=== PATIENT | female | born 1965 | race Caucasian/White ===

== ENCOUNTER 2019-11-02 05:31 | Inpatient (IN) | payer BC, SELFPAY ==
[2019-11-02] VITALS (40 sets, daily range): BP systolic 90–141; BP diastolic 44–78; PULSE 54–87; RESP 10–28; TEMP 36.8–37.3; O2SAT 90–100; BMI 23.5
--- NOTE | 2019-11-02 05:36 | W.ED.CHESTPA ---
HPI - Chest Pain General: Chief Complaint: Chest Pain Stated Complaint: chest pain Time Seen by Provider: 11/02/19 05:36 History of Present Illness: HPI narrative: 53-year-old lady with no prior history of coronary disease. She does have a history of smoking and hypertension. She went to bed yesterday evening with some chest discomfort she related to indigestion. Kept her awake on and off. This morning she got up with worsening chest discomfort, she had a near syncopal episode on her way to the bathroom. EMS was called. EKG done in the field showed elevations in 2 3 aVF. Associated symptoms: Reports dyspnea and nausea; Deny abdominal pain, fever(s), palpitations or vomiting Review of Systems Const: Denies: fever(s) or chills Eyes: Denies: change in vision ENMT: Denies: swelling of lips/tongue or sinus pain Card: Reports: chest pain; Denies: palpitations, irregular heart rhythm or edema Resp: Reports: dyspnea; Denies: productive cough, non-productive cough or wheezing GI: Reports: nausea; Denies: abdominal pain or vomiting : Denies: dysuria or hematuria Skin/Breast: Denies: rash or pruritus Neuro: Reports: dizziness; Denies: headache(s) or vertigo Psych: Denies: anxiety PFSH ED PFSH: Medical History (Updated 11/02/19 @ 06:15 by Rakesh Baldwin MD) Essential hypertension Tobacco abuse Surgical History (Updated 11/02/19 @ 06:15 by Rakesh Baldwin MD) H/O: hysterectomy Physical Exam Const: GENERAL APPEARANCE: well developed ORIENTATION/CONSCIOUSNESS: Yes oriented to person, Yes oriented to place and Yes oriented to time HENMT: COMMON NORMALS: normocephalic, external ears normal and Normal external nose present HEAD & SCALP: normocephalic FACE & SINUS: normal facial exam NOSE: Normal external nose present and No nasal discharge present EXTERNAL EAR: Yes external ears normal Eye: COMMON NORMALS: Equal, round and reactive pupils present, EOMs intact bilaterally and conjunctivae normal EYELID: eyelids normal CONJUNCTIVA: Yes conjunctivae normal PUPIL: Yes Equal, round and reactive pupils present Neck/C-Spine: GENERAL: No tracheal deviation Chest: COMMONS NORMALS: normal inspection of the chest CHEST: No tenderness Resp: COMMON NORMALS: clear to auscultation bilaterally EFFORT & INSPECTION: No tachypneic, No respiratory distress, No retractions, No uses accessory muscles and No tracheal deviation AUSCULTATION: clear to auscultation bilaterally, no rhonchi, no wheezes and lung sounds not diminished Cardio: COMMON NORMALS: regular rate and regular rhythm RATE: regular rate RHYTHM: regular rhythm HEART SOUNDS: no murmurs PERIPHERAL PULSES: radial pulses present GI: INSPECTION: No abdominal distension AUSCULTATION: No Hyperactive bowel sounds present and No Hypoactive bowel sounds present PALPATION: No Guarding due to palpation present (GI) and No Rigid due to palpation Neuro: SENSORIUM/ORIENTATION: Yes oriented to person, Yes oriented to place and Yes oriented to time Psych: COMMON NORMALS: mental status grossly normal Skin: COMMON NORMALS: no rashes or lesions noted GENERAL SKIN EXAM: no rashes or lesions noted Course Consultations: Consultation #1: yarelis Time: 05:36 Vital Signs: Vital signs: Vital Signs Temperature 98.2 F 11/02/19 05:31 Pulse Rate 72 11/02/19 06:14 Respiratory Rate 18 11/02/19 06:14 Blood Pressure 133/63 11/02/19 06:14 Pulse Oximetry 99 11/02/19 06:14 MDM - Chest Pain MDM Narrative: Medical decision making narrative: 53-year-old female with chest discomfort. EKG both in the field and on arrival here shows ST elevation in leads II, III, and aVF indicative of inferior DC. She has some reciprocal changes as well. Her blood pressure is 132/66. Rate is sinus in the 80s. Her oxygen saturations are 96% on room air. She is awake, and talking. She has little discomfort at this point. He received nitroglycerin in the field which improved her pain. Cardiology consulted as soon as her EKG was performed. STEMI alert was called. Cath team is on their way. Lab Data: Labs: Lab Results 11/02/19 11/02/19 Range/Units 04:42 05:35 WBC 18.5 H (4.0-10.0) 10^3/ uL RBC 4.54 (4.1-5.3) 10^6/u L Hgb 15.3 (11.5-15.3) g/dL Hct 47.5 H (37.0-47.0) % MCV 104.6 H (81-99) fL MCH 33.7 (28.0-34.0) pg MCHC 32.2 (30.0-36.0) g/dL RDW 12.8 (12.1-15.1) % Plt Count 198 (130-400) 10^3/c mm MPV 12.3 H (7.4-10.4) fL Neut % (Auto) 72.8 % Lymph % (Auto) 19.9 % [place] % (Auto) 5.7 % Eos % (Auto) 0.8 % Baso % (Auto) 0.4 % Neut # (Auto) 13.45 H (1.8-7.7) 10^3/u L Lymph # (Auto) 3.7 (0.8-4.8) 10^3/u L [place] # (Auto) 1.1 H (0.2-0.9) 10^3/u L Eos # (Auto) 0.2 (0.0-0.8) 10^3/u L Baso # (Auto) 0.1 (0.0-0.1) 10^3/u L Nucleated RBC % (a uto) 0 % Nucleated RBCs # 0.0 /100WBC PT 12.50 (10.5-13.3) SECO NDS INR 0.91 (0.8-1.2) APTT 28.5 (23.9-36.7) SECO NDS Discharge Plan Discharge Patient Disposition: Admitted As Inpatient Clinical Impression: ST elevation myocardial infarction (STEMI) Condition: Stable Coding Level of Care Code ED Mechanic Foreman for henry Fwd Exam Comprehensive
--- NOTE | 2019-11-02 05:38 | ECG_ITS ---
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 Measurements Intervals [place] Rate: 72 P: 62 [place]: 141 QRS: 74 QRSD: 91 T: 90 QT: 384 QTc: 422 Interpretive Statements SINUS RHYTHM WITH SINUS ARRHYTHMIA POSSIBLE LEFT ATRIAL ENLARGEMENT [-0.1mV P WAVE IN V1/V2] INCOMPLETE RIGHT BUNDLE BRANCH BLOCK [90+ ms QRS DURATION, TERMINAL R IN V1/V2, 40+ ms S IN I/aVL/V4/V5/V6] ST ELEVATION, CONSIDER INFERIOR INJURY [MARKED ST ELEVATION W/O NORMALLY INFLECTED T WAVE IN II/aVF] ACUTE VA INTERPRETATION BASED ON A DEFAULT AGE OF 40 YEARS No previous ECG available for comparison Electronically Signed On 11-02-2019 10:27:41 CDT by Rakesh Baldwin M.D. [id number]
--- NOTE | 2019-11-02 05:38 | XRR_ITS ---
PROCEDURE INFORMATION: Exam: XR Chest, 1 View Exam date and time: 11/02/2019 5:39 AM Age: 53 years old Clinical indication: Chest pain; Type not specified; Additional info: Cp TECHNIQUE: Imaging protocol: XR of the chest Views: 1 view. COMPARISON: No relevant prior studies available. FINDINGS: Tubes, catheters and devices: A transcutaneous pacemaker lead overlies the right hemithorax. Lungs: Unremarkable. No consolidation. Pleural space: Unremarkable. No pleural effusion. No pneumothorax. Heart/Mediastinum: Unremarkable. No cardiomegaly. Bones/joints: Unremarkable. XR/XR chest 1V portable [id number] IMPRESSION: There are no acute chest findings.
[2019-11-02] MEDS: heparin 5,000 unit/mL INJ 1 mL 4000 UNIT IVP (05:43)
--- NOTE | 2019-11-02 05:45 | PC.NURSE ---
Received patient to ER via ems with complaint of chest pain that woke her up at 0030. Patient had near syncope episode on the way to the bathroom. Patient wnet to the bathroom with diarrhea and passed out off stool. Patient called ou to her son who called ems. Patient arrives with 18g iv right ac per ems. in room. 2nd iv established right ac, ekg, placed on monitor/bp and pulse ox. Patient had nitro sl per ems and took a 325mg Asa at home. Meds given per order.
[2019-11-02] MEDS: sodium chloride 0.9% 500 ML 999 ML IV (05:49)
[2019-11-02] MEDS: clopidogrel 300 mg Tablet 600 MG PO (05:49)
[2019-11-02] MEDS: ondansetron 2 mg/ML SDV 2 mL 4 MG IVP (05:49)
[2019-11-02] MEDS: sodium chloride 0.9% 1,000 ML 999 ML IV (05:49)
--- NOTE | 2019-11-02 05:50 | XACV_ITS ---
Ht: 170 cm Wt: 68 kg BSA: 1.80 m2 Gender: Female : 1965 Exam Priority: Routine Procedure(s): Procedure Description: Diagnostic procedure Procedure Description: PCI procedure Procedure Description: Drug Eluting Coronary Stent Procedure Description: Coronary Angiography Diagnostic Cath Status: Emergency Diagnostic Findings Arrived at the emergency room with chest discomfort typical of injury. ST elevation inferiorly. Cardiac catheterization revealed the right coronary artery to be occluded proximally. The system is right dominant. The left main coronary artery is normal. The circumflex and LAD are normal. No left ventriculogram performed due to hypotension after intervention. PCI Status: Emergency Interventional Findings The right coronary artery was occluded proximally. The wire opened the artery slightly. The vessel was stented primarily. After this there was significant spasm both distal to and proximal to the stent which caused bradycardia and hypotension. The bradycardia was treated with 0.2 mg of atropine. The hypotension was treated with fluids. I was unable to use nitroglycerin to attempt relief of the spasm. Therefore I placed the balloon in the 2 areas proximal to and distal to the stent to break the spasm. Conclusions Acute inferior wall AL with occluded right coronary artery. Treated with primary stenting. Post stenting spasm relieved with balloon angioplasty. Interventional RX Recommendation: PCI w/o planned CABG Diagnostic RX Recommendation: PCI w/o planned CABG Anticoagulation: Heparin Pressures Phase:Rest AO : 56 mmHg / 14 mmHg ( 29 mmHg ) @ 1:39:00 AM 78 mmHg / 50 mmHg ( 63 mmHg ) @ 1:45:00 AM Clinical Evaluation EBL: 5mL-10mL Procedural Details Admit Source: Emergency department. Procedure Consent Obtained. Does the consent match the physician's order: Yes. Accurate & Complete Informed Consent: Yes. The risks, benefits, and alternatives of sedation and/or procedure were discussed by physician. The patient agrees to continue. If H&P is completed, is and addenduem needed: N/A Emergent; If yes, is the addendum complete: N/A Emergent. Procedure started. Current diagnosis: STEMI. PERRLA. Strong, equal hand body recall instructor bilaterally. Lungs clear x 5 lobes. IV Site on Arrival: 18 gauge in the left anticubital. IV Site on Arrival: 20 gauge in the right anticubital. IV Site on Arrival: Saline Lock. Oxygen started at 2liters/min via nasal canula. right radial was prepped with chloroprep then draped in the usual sterile fashion. bilateral groins was prepped with chloroprep then draped in the usual sterile fashion. Physician notified. Baseline sample Acquired. HR: 82 BPM. Physician arrived. Physician scrubbed in. Correct Patient: Yes; Correct Procedure: Yes; Correct Site: Yes; Correct Patient Position: Yes; Correct Supplies: Yes; Dried Flammable Prep: Yes; Blood Products Available: N/A Emergent;. Lidocaine 1% infiltrated to the right radial. Arterial access obtained. Inventory is CRD 6FR JR 4 GUIDE 100cm. guide inserted 6Fr JR4. Multiple views taken of left coronary artery. Catheter redirected to the RCA. Inflation Number : 1 Otilia Hatfiedl TATIANNA 2.75X18 RICHY -Lot Number# [id number] expiration date: 07/17/2020was prepped and advanced across the Prox RCA. The stent was deployed at 5 AMEYA for 0:50 seconds. 100mL/hr normal saline. Inflation number: 2 The stent balloon was then re-inflated across the Prox RCA to 3 AMEYA for 0:16 seconds. Inflation number: 3 The stent balloon was then re-inflated across the Prox RCA to 5 AMEYA for 0:15 seconds. Inflation number: 2 The stent balloon was then re-inflated across the Prox RCA to 5 AMEYA for 0:10 seconds. balloon and wire removed. Physician scrubbed out. Guide catheter out. TR band placed. Hemostasis obtained. A TR Band was successful obtaining hemostatsis at the Right Radial artery insertion site. Post Procedure: Pulses reassessed and unchanged. PERRLA. Strong, equal hand body recall instructor bilaterally. No VTE prophylaxis required. Contrast type used: Omnipaque 300 mgI/mL, 500 mL bottle. [facility] Clinical Fraility Score: 4: Vulnerable. Missile Inspector Preflight Indications: ACS > 24 hours. Chest Pain Symptom Assessment: Typical Angina Symptoms. Cardiovascular Instability: No. Medication's Wasted: Lidocaine 1% = 18 mL. Medication's Wasted: Nitro = 49.8 mg. Medication's Wasted: Heparin = 1000 units. Medication's Wasted: Other = Atropine 0.8mg. Medication's Wasted: Other = Versed 1mg. Total IV fluids: 100 mL. PCI Indication: STEMI. Complications: None. Estimated blood loss: 5mL-10mL. Procedure completed. Patient transferred by wheelchair to 1st floor. Vital chart was stopped. Site: Right Radial artery Sheath Size: 6 Fr Hemostasis Method: TR Band Hemostasis Success: Successful Procedure Medications Start: 6:25 AM Stop: 6:25 AM Medication: Versed Amount: 1 mg Route: I.V. Start: 6:25 AM Stop: 6:25 AM Medication: Fentanyl Amount: 50 mcg Route: I.V. Start: 6:25 AM Stop: 6:25 AM Medication: Versed Amount: 1 mg Route: I.V. Start: 6:25 AM Stop: 6:25 AM Medication: Fentanyl Amount: 50 mcg Route: I.V. Start: 6:28 AM Stop: 6:28 AM Medication: Verapamil Amount: 5 mg Route: I.A. Start: 6:28 AM Stop: 6:28 AM Medication: Nitrogylcerin Amount: 200 mcg Route: I.A. Start: 6:39 AM Stop: 6:39 AM Medication: Versed Amount: 1 mg Route: I.V. Start: 6:40 AM Stop: 6:40 AM Medication: Atropine Amount: 0.2 mg Route: I.V. I, the attending physician, have reviewed and verified all procedure medications. Yes, all medications given per verbal order History/Risk Factors Hypertension: No Dyslipidemia: No Peripheral Arterial Disease (PAD): No Myocardial Infarction (AL): No Obesity: No Renal Disease: No Tobacco Use: Current/Recent(w/in 1 year) Prior Interventions PCI: No CABG: No Valve Surgery: No Report Signatures Finalized by:Dr. Rakesh Baldwin MD on 11/02/2019 7:21:24 AM
[2019-11-02 05:58] LABS: Basophils # 0.1 10^3/uL (0.0-0.1); Basophils % 0.4 %; Eosinophils # 0.2 10^3/uL (0.0-0.8); Eosinophils % 0.8 %; Hematocrit 47.5 % (37.0-47.0); Hemoglobin 15.3 g/dL (11.5-15.3); Lymphocytes # 3.7 10^3/uL (0.8-4.8); Lymphocytes % 19.9 %; Mean Corpuscular HGB Conc 32.2 g/dL (30.0-36.0); Mean Corpuscular Hemoglobin 33.7 pg (28.0-34.0); Mean Corpuscular Volume 104.6 fL (81-99); Mean Platelet Volume 12.3 fL (7.4-10.4); Monocytes # 1.1 10^3/uL (0.2-0.9); Monocytes % 5.7 %; Neutrophils # 13.45 10^3/uL (1.8-7.7); Neutrophils % 72.8 %; Nucleated Red Blood Cells % 0 %; Platelet Count 198 10^3/cmm (130-400); Red Blood Count 4.54 10^6/uL (4.1-5.3); Red Cell Distribution Width 12.8 % (12.1-15.1); White Blood Count 18.5 10^3/uL (4.0-10.0)
--- NOTE | 2019-11-02 06:07 | PC.NURSE ---
Cath team Dr. veronica kincaid, patient pain 10/01.
--- NOTE | 2019-11-02 06:12 | P.HP_ITS ---
Providers/Chief Complaint Admitting Physician: Denny Chief Complaint: chest pain History of Present Illness Yaneth Wise is a 53 year old female who comes in under a STEMI alert. She has no history of heart disease. Last night she and her son ate spicy tacos. Around midnight she developed some upper abdominal and lower chest discomfort which she attributed to indigestion. Her stomach was upset and she knew she was going to have diarrhea. She got up and on the way to the bathroom passed out and did a face plant . She got up and then went to the bathroom and had diarrhea. After that she had another episode of syncope while sitting on the toilet. She then managed to get a hold of her son who was in a different room. She took an aspirin and then came to the emergency room. She has ST segment elevation in the inferior leads. She has been given 4000 units of heparin and 600 mg of Plavix. She has been given 4 mg of Zofran. She still has discomfort 6 on a 10 scale. She has hypertension but quit taking her medications in February when she moved to this area from [place]. She is a lifelong smoker but does not have any other medical problems. She had a hysterectomy. Review of Systems General: Reports: 10 or more systems reviewed and unremarkable except in HPI and below Medications/Allergies Allergies Allergy/AdvReac Type Severity Reaction Status Date / Time No Known Allergies Allergy Verified 11/02/19 05:31 PFSH Acute PFSH: Medical History (Updated 11/02/19 @ 06:15 by Rakesh Baldwin MD) Essential hypertension Tobacco abuse Surgical History (Updated 11/02/19 @ 06:15 by Rakesh Baldwin MD) H/O: hysterectomy Vitals/I&O/Wt Last Vital Signs Temp 98.2 F 11/02/19 05:31 Pulse 72 11/02/19 06:00 Resp 16 11/02/19 06:00 BP 133/61 11/02/19 06:08 Pulse Ox 99 11/02/19 06:08 Weight last 48 hrs Weight 150 lb Physical Exam Const: COMMON NORMALS: no acute distress, average body habitus, patient oriented x3, no limitations, healthy appearing, alert and well nourished HENMT: COMMON NORMALS: normocephalic, atraumatic, hearing grossly normal bilaterally, external ears normal, EAC's normal, TM's normal bilaterally, Normal external nose present, Normal nasal mucous membranes and turbinates present, moist oral mucous membranes, oropharynx normal, dentition normal and gingiva normal Chest: COMMONS NORMALS: normal inspection of the chest, normal palpation of entire chest wall, normal inspection of the breasts and normal palpation of the breasts Resp: COMMON NORMALS: normal respiratory effort, No retractions, No use of accessory muscles, clear to auscultation bilaterally and percussion normal Cardio: COMMON NORMALS: no JVD, regular rate, regular rhythm, S1 normal heart sound present, S2 normal heart sound present, No gallops present (Cardio), No clicks present (Cardio), No murmurs present (Cardio), No rub (Cardio) and Peripheral pulses 2+ throughout GI: COMMON NORMALS: Normal to inspection, nondistended, normoactive bowel sounds present, Soft to palpation, non-tender, No hepatosplenomegaly present, no masses and no bruits Extremity: COMMON NORMALS: normal to inspection, full ROM, capillary refill normal, no joint enlargement, no clubbing, cyanosis or edema, no calf tenderness and no pedal edema Neuro: COMMON NORMALS: patient oriented x3, CN's II-XII intact bilaterally, moves all extremities, no focal motor deficits, no sensory deficits noted, deep tendon reflexes 2+ bilaterally and gait normal Skin: COMMON NORMALS: no rashes or lesions noted, no wounds, turgor normal, no jaundice, no petechiae and no mottling Data : 11/02/19 04:42 Other data: Chest x-ray is normal. EKG reveals sinus rhythm with ST elevation in the inferior leads with some reciprocal changes. A&P Assessment and plan (1) ST elevation myocardial infarction (STEMI): Status: Acute (2) Essential hypertension: Status: Acute (3) Tobacco abuse: Status: Acute Additional A&P Information Cardiac catheterization immediately. Attestations Medical Necessity Statement*: Patient should require hospitalization for 2 mid nights for treatment of an acute inferior wall HI. Coding Level of Care Code New Pt Acute Lithoplate Maker for Chg Fwd Patient Type New History Detailed Exam Detailed Medical Decision Making Moderate Complexity Diagnoses ST elevation myocardial infarction (STEMI) I21.3 Essential hypertension I10 Tobacco abuse Z72.0
[2019-11-02 06:19] LABS: INR 0.91 (0.8-1.2)
[2019-11-02 06:20] LABS: Partial Thromboplastin Time 28.5 SECONDS (23.9-36.7)
--- NOTE | 2019-11-02 06:20 | PC.NURSE ---
Patient to laborer brush clearing in stable condition.
[2019-11-02 06:29] LABS: Alanine Aminotransferase 10 U/L (0-33); Albumin Level 4.9 g/dL (3.5-5.2); Alkaline Phosphatase 93 IU/L (35-105); Anion Gap 18.2 (5-19); Aspartate Amino Transferase 14 U/L (0-32); Blood Urea Nitrogen 18 mg/dL (6-20); Calcium 10.2 mg/dL (8.5-10.5); Carbon Dioxide 24 mmol/L (22-29); Chloride 105 mmol/L (98-107); Creatine Phosphokinase 88 U/L (26-192); Globulin 1.8 g/dL (1.3-4.6); Glomerular Filtration Rate 65.5 mL/min (90-130); Glucose 138 mg/dL (65-115); Osmolality Calculated 295 mOsm/kg (285-295); Potassium 4.2 mmol/L (3.5-5.1); Sodium 143 mmol/L (136-145); Total Bilirubin 0.2 mg/dL (0.15-1.2); Total Protein 6.7 g/dL (6.6-8.7)
[2019-11-02 06:32] LABS: Troponin(5th) Baseline 45 ng/L (0-10)
--- NOTE | 2019-11-02 07:38 | ECG_ITS ---
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 Measurements Intervals [place] Rate: 67 P: 48 RI: 142 QRS: 34 QRSD: 94 T: -1 QT: 438 QTc: 465 Interpretive Statements SINUS RHYTHM POSSIBLE RIGHT VENTRICULAR CONDUCTION DELAY [RSR (QR) IN V1/V2] No previous ECG available for comparison Electronically Signed On 11-02-2019 10:30:05 CDT by Rakesh Baldwin M.D. [id number]
--- NOTE | 2019-11-02 08:21 | USCV_ITS ---
Todjudi Bette Age: 53 Gender: F : 1965 Exam Date: 11/02/2019 08:43 Ordering Phys: Rakesh Baldwin MD ([email or web address]) Technologist: Mary Alice Ling [place] [facility] [place]: Acute inferior wall MS BP: 133 / 63 HR: 63 Rhythm: Sinus Technical Quality: Adequate MEASUREMENTS (Male / Female) Normal Values 2D ECHO LV Diastolic Diameter PLAX 4.0 cm 4.2 - 5.9 / 3.9 - 5.3 cm LV Systolic Diameter PLAX 2.5 cm LV Chamber Size 3.9 cm IVS Diastolic Thickness 1.6 cm 0.6 - 1.0 / 0.6 - 0.9 cm IVS Systolic Thickness 1.7 cm LVPW Diastolic Thickness 0.9 cm 0.6 - 1.0 / 0.6 - 0.9 cm LVPW Systolic Thickness 0.9 cm RV Chamber Size 2.2 cm LVOT Diameter 2.0 cm LV Ejection Fraction 2D Teich 66.0 % LV Ejection Fraction MOD 2C 62.0 % LV Ejection Fraction 2C AL 63.8 % LA Diameter 2.6 cm LA Width 2.4 cm LA Height 4.6 cm RA Width 2.2 cm RA Height 3.7 cm Aorta at Sinotubular Diameter 2.4 cm M-MODE LV Diastolic Diameter MM 4.3 cm 4.2 - 5.9 / 3.9 - 5.3 cm LV Systolic Diameter MM 3.0 cm LV Ejection Fraction MM Teich 57.0 % IVS Diastolic Thickness MM 1.1 cm 0.6 - 1.0 / 0.6 - 0.9 cm IVS Systolic Thickness MM 1.3 cm LVPW Diastolic Thickness MM 1.1 cm 0.6 - 1.0 / 0.6 - 0.9 cm LVPW Systolic Thickness MM 1.2 cm RV Diastolic Diameter MM 0.8 cm Aortic Annulus Diameter 2.7 cm LA Ao Ratio MM 1.0 MV E Point Septal Separation 0.4 cm DOPPLER AV Peak Velocity 149.0 cm/s LVOT Peak Velocity 102.0 cm/s AV Area Cont Eq vti 2.5 cm squared AV Area Cont Eq pk 2.0 cm squared MV Area PHT 4.3 cm squared Mitral E to A Ratio 1.0 MV E' Velocity 11.0 cm/s Mitral E to MV E' Ratio 6.9 Mitral E to LV E' Lateral Ratio 6.3 Mitral E to LV E' Septal Ratio 7.7 TR Peak Velocity 230.0 cm/s TR Peak Gradient 21.1 mmHg TV Peak E Velocity 39.0 cm/s Right Atrial Pressure 8.0 mmHg Pulmonary Artery Systolic Pressu 29.2 mmHg PV Peak Velocity 60.0 cm/s RV Acceleration Time 0.1 s RV Ejection Time 0.3 s RV AcT/ET 0.5 FINDINGS Left Ventricle Normal left ventricular cavity size. Normal left ventricular wall thickness. Mildly decreased left ventricular systolic function. Regional wall motion abnormalities (see diagram). Left ventricular ejection fraction is estimated at 45-50%. Normal diastolic function. Mild to moderate hypokinesis of the inferior and posterior montez Right Ventricle Normal right ventricular size and systolic function. Normal right ventricular systolic pressure. Right Atrium The right atrium is normal in size. Left Atrium The left atrium is normal in size. Mitral Valve Structurally normal mitral valve. Trace mitral valve regurgitation. Aortic Valve Structurally normal trileaflet aortic valve. No aortic valve stenosis. Mild aortic valve regurgitation. Tricuspid Valve Structurally normal tricuspid valve. Trace tricuspid valve regurgitation. Pulmonic Valve Pulmonic valve not well visualized. Pericardium Normal pericardium without effusion. Aorta Normal ascending aorta dimension. CONCLUSIONS Normal left ventricular cavity size. Normal left ventricular wall thickness. Mildly decreased left ventricular systolic function. Regional wall motion abnormalities (see diagram). Left ventricular ejection fraction is estimated at 45-50%. Normal diastolic function. Mild to moderate hypokinesis of the inferior and posterior montez. Structurally normal mitral valve. Trace mitral valve regurgitation. Structurally normal trileaflet aortic valve. No aortic valve stenosis. Mild aortic valve regurgitation. There are no prior echocardiogram studies to compare. Dr. Rakesh Baldwin MD (Electronically Signed) Final Date: 02 November 2019 10:25 S
[2019-11-02 08:48] LABS: Troponin 5 2HR 1173 ng/L (0-10); Troponin 5 2HR Delta 1128 ABS# (0-10)
[2019-11-02] MEDS: sodium chloride 0.9% 1,000 ML 150 ML IV (10:26)
[2019-11-02] MEDS: aspirin 81 mg EC Tablet PO ×2 (10:27→10:30)
--- NOTE | 2019-11-02 10:56 | PC.NURSE ---
pt admitted to room 103 from rags laborer at 0715.report received.pt is alert and awake.sr on monitor.denies pain at present .right wrist with tr band on and inflated.right hand is warm to touch and with brisk capillary refill.no hematoma noted.palpable radial pulse noted distal to tr band. instructed in activity restrictions s/p radial artery procedure..and instructed to notify staff of any bleeding,pain,numbness...or for any concerns at all.pt verb understanding of instructions.
--- NOTE | 2019-11-02 11:05 | PC.NURSE ---
dysrhythmias noted on monitor s/p inferior mi and stent to prox rca...episodes of mf pvc's...short run of svt. dr hussein notified.no new orders received.
[2019-11-02] MEDS: ALPRAZolam 0.25 mg Tablet PO ×2 (11:16→20:58)
--- NOTE | 2019-11-02 11:38 | ECG_ITS ---
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 Measurements Intervals [place] Rate: 63 P: 29 CT: 142 QRS: 16 QRSD: 91 T: -16 QT: 413 QTc: 424 Interpretive Statements SINUS RHYTHM POSSIBLE RIGHT VENTRICULAR CONDUCTION DELAY [RSR (QR) IN V1/V2] POSSIBLE INFERIOR MYOCARDIAL INFARCTION [30 ms Q WAVE IN II/aVF], OF INDETERMINATE AGE WARNING: DATA QUALITY MAY AFFECT INTERPRETATION Compared to ECG 11/02/2019 07:52:41 Myocardial infarct finding now present Electronically Signed On 11-03-2019 8:05:33 CDT by Rakesh Baldwin M.D. [id number]
--- NOTE | 2019-11-02 13:52 | PC.CHAP ---
Pastoral Care Encounter/Spiritual Assessment Type of Contact [] Declined precision devices inspector/tester visit [] Patient/Family/Request visit [] Outpatient visit [] Follow-up visit [] Physician referral [] Code/Alert [X] Routine visit [] Staff referral [] Actively dying [] Patient sleeping [] Family support [] [] Out of room [] Palliative care [] [] Receiving care in room [] Pre-surgical visit [] Trauma [] Long length of stay [] ICU visit [] Other: Relational/Emotional Strength [] Patient feels connected with others/family/visitors/staff [] Distress [] Loneliness/isolation [] Abandonment Spirituality of Patient [] Person of Avril [] Attends Islam of their Avril [] Believes in Prayer [] Reads Bible or Mu-Ism materials [] There are Spiritual issues to be addressed Electronic Gluer Interventions [] Prayer [] Active listening [] Non-anxious presence [] Spiritual/emotional support [] Crisis/trauma care [] Spiritual counseling [] Bereavement support [] Provided bereavement packet [] Provided Bible/devotional materials [] Provided toy/stuffed animal, coloring book to patient or family member [] Provided Communion [] Anointing/Rattan [] Salvation [] Completed spiritual assessment [] Other: Impact on Illness or Injury [] Angry [] Fearful [] Anxious [] Often cries [] Exhaustion [] Unable to work [] Unable to attend amish [] Unable to walk/stand [] Unable to read [] Unable to drive [] Unable to eat/drink [] Unable to sleep [] Unable to be with family [] Patient intubated [] Other: Summary Time spent with patient
[2019-11-02 14:17] LABS: Troponin 5 6HR 4709 ng/L (0-10); Troponin 5 6HR Delta 4664 ng/L (0-12)
--- NOTE | 2019-11-02 19:32 | PC.NURSE ---
tr band removal: tr band slowly deflated over several hours.finally removed at 1330.site dressed with 2x2 guaze and secured with biocclusive drsg.right hand remains warm to touch and with brisk capillary refill.no hematoma noted.instructed in activity restrictions s/p tr band removal...and instructed to notify staff for any bleeding,pain,numbness..or for any concerns at all.pt verb understanding of instructions.
--- NOTE | 2019-11-02 20:39 | PC.NURSE ---
Rounding: Patient is resting in bed. Patient R wrist dressing is clean dry and intact at this time and free of a hematoma. Patient remains alert and oriented. Patient denies any needs or complaints at this time. Patient call light is within reach, bed in low position, and side rails up x2.
[2019-11-02] MEDS: atorvastatin 40 mg Tablet PO (20:58)
[2019-11-03 03:32] VITALS: BP 134/50; PULSE 70; RESP 18; TEMP 37.1; O2SAT 92
[2019-11-03 03:41] LABS: Basophils % 0.4 %; Eosinophils # 0.1 10^3/uL (0.0-0.8); Eosinophils % 0.7 %; Hematocrit 41.2 % (37.0-47.0); Hemoglobin 12.8 g/dL (11.5-15.3); Lymphocytes # 3.3 10^3/uL (0.8-4.8); Lymphocytes % 33.6 %; Mean Corpuscular HGB Conc 31.1 g/dL (30.0-36.0); Mean Corpuscular Hemoglobin 32.4 pg (28.0-34.0); Mean Corpuscular Volume 104.3 fL (81-99); Mean Platelet Volume 11.8 fL (7.4-10.4); Monocytes # 0.7 10^3/uL (0.2-0.9); Monocytes % 7.4 %; Neutrophils # 5.64 10^3/uL (1.8-7.7); Neutrophils % 57.7 %; Nucleated Red Blood Cells % 0 %; Platelet Count 176 10^3/cmm (130-400); Red Blood Count 3.95 10^6/uL (4.1-5.3); Red Cell Distribution Width 13.1 % (12.1-15.1); White Blood Count 9.8 10^3/uL (4.0-10.0)
[2019-11-03 04:03] LABS: Anion Gap 12.6 (5-19); Blood Urea Nitrogen 12 mg/dL (6-20); Calcium 8.8 mg/dL (8.5-10.5); Carbon Dioxide 24 mmol/L (22-29); Chloride 109 mmol/L (98-107); Glomerular Filtration Rate 87.5 mL/min (90-130); Glucose 121 mg/dL (65-115); Osmolality Calculated 289 mOsm/kg (285-295); Potassium 4.6 mmol/L (3.5-5.1); Sodium 141 mmol/L (136-145)
--- NOTE | 2019-11-03 05:54 | PC.NURSE ---
End of shift: Patient has rested well this shift. Patient remains alert and oriented. R wrist does not have a hematoma. dressing is clean dry and intact. Patient denies any complaints at this time and will continue to monitor. Call light is within reach.
[2019-11-03 07:05] VITALS: BP 141/62; PULSE 70; RESP 19; TEMP 36.9; O2SAT 93
--- NOTE | 2019-11-03 07:16 | P.DS_ITS ---
Discharge Providers Date of Admission: 11/02/19 07:18 Date of Discharge: November 03, 2019 Attending Provider at Admission: Rakseh Baldwin MD Attending Provider at Discharge: Rakesh Baldwin MD Primary Care Provider: DOCTOR NOT ON FILE Diagnoses at Discharge Discharge Diagnosis (1) ST elevation myocardial infarction (STEMI): Status: Acute (2) Essential hypertension: Status: Acute (3) Tobacco abuse: Status: Acute Reason for Visit Reason for Visit: chest pain Hospital Course Hospital Course: Patient was admitted with an acute inferior wall MT. She was taken immediately to the catheterization laboratory. Her right coronary artery was occluded shortly after its origin. She underwent primary stenting. This caused a significant amount of spasm proximal to the stent all the way to the ostium and for short distance distal to the stent. She became hypotensive and bradycardic in the catheterization laboratory. I was unable to use nitroglycerin so I simply took the stent balloon and inflated it in the areas of spasm to break the spasm. This was successful. The end result was adequate. Her left coronary arteries are normal. I did not perform a left ventriculogram. Echocardiography revealed only mild hypokinesis of the inferior and posterior wall. She had some accelerated idioventricular rhythm for the 24 hours after the procedure. Her heart rate was relatively low throughout the day however at the time of discharge is in the 70s. Her blood pressure has been stable. She stated that she was placed on metoprolol in the past and did not like the way it made her feel. I will send her home on carvedilol. She will also go home on aspirin, Plavix, statin. She states she has had muscle aches from a statin in the past. I asked her to give it a try again. She has been asked to stop smoking. The procedure was done from the right radial artery. There were no vascular complications. At the time of discharge her right radial artery was flat, dry without bleeding or hematoma. She has a good pulse. There were no other complications such as congestive heart failure or other arrhythmias. Physical Exam Narrative: EXAM NARRATIVE: GENERAL: In general she looks and feels well HEENT: Exam within normal limits. NECK: Supple without jugular vein distention. The carotid upstroke is normal without bruits. BACK: Exam normal. LUNGS: Clear. HEART: Regular rate and rhythm. ABDOMEN: Benign without organomegaly or tenderness. EXTREMITIES: No edema. Right radial artery entry site flat, dry without bleeding or hematoma. Pulse 2+. NEUROLOGIC: Exam normal. SKIN: Unremarkable. Discharge Data Data Completed and Pending: Completed Studies During Hospitalization Category Date Time Status RETURNS PROCESSOR request for service Stat Exams 11/02/19 05:50 Completed XR chest 1V ethel ble [id number] Urgent Exams 11/02/19 05:38 Completed CV echo complete* [id number] Routine Ultrasound 11/02/19 08:21 Completed Labs from last 24 hours 11/03/19 11/03/19 11/02/19 03:01 03:01 13:21 WBC 9.8 RBC 3.95 L Hgb 12.8 Hct 41.2 MCV 104.3 H MCH 32.4 MCHC 31.1 RDW 13.1 Plt Count 176 MPV 11.8 H Neut % (Auto) 57.7 Lymph % (Auto) 33.6 [place] % (Auto) 7.4 Eos % (Auto) 0.7 Baso % (Auto) 0.4 Neut # (Auto) 5.64 Lymph # (Auto) 3.3 [place] # (Auto) 0.7 Eos # (Auto) 0.1 Baso # (Auto) 0.0 Nucleated RBC % (a uto) 0 Nucleated RBCs # 0.0 Sodium 141 Potassium 4.6 Chloride 109 H Carbon Dioxide 24 Anion Gap 12.6 BUN 12 Creatinine 0.7 GFR Calculation 87.5 L Glucose 121 H Calculated Osmolal ity 289 Calcium 8.8 Troponin T 120 Min [place] Delta Troponin T Troponin T Hi Sens 6Hr 4709 H Troponin T Hi Sens 6Hr Delta 4664 H* 11/02/19 08:07 WBC RBC Hgb Hct MCV MCH MCHC RDW Plt Count MPV Neut % (Auto) Lymph % (Auto) [place] % (Auto) Eos % (Auto) Baso % (Auto) Neut # (Auto) Lymph # (Auto) [place] # (Auto) Eos # (Auto) Baso # (Auto) Nucleated RBC % (a uto) Nucleated RBCs # Sodium Potassium Chloride Carbon Dioxide Anion Gap BUN Creatinine GFR Calculation Glucose Calculated Osmolal ity Calcium Troponin T 120 Min [place] 1173 H Delta Troponin T 1128 H* Troponin T Hi Sens 6Hr Troponin T Hi Sens 6Hr Delta Vitals: Last Vital Signs Temp 98.5 F 11/03/19 07:05 Pulse 70 11/03/19 07:05 Resp 19 H 11/03/19 07:05 BP 141/62 11/03/19 07:05 Pulse Ox 93 11/03/19 07:05 Discharge Plan Discharge Patient Disposition: Home, Self-Care Condition: Stable Prescriptions: New carvedilol 3.125 mg tablet 3.125 mg PO BID Qty: 60 RF: 3 aspirin 81 mg Tablet,Delayed Release (Dr/Ec) 81 mg PO DAILY Qty: 100 RF: 2 atorvastatin 40 mg Tablet 40 mg PO BEDTIME Qty: 30 RF: 4 clopidogrel 75 mg Tablet 75 mg PO DAILY Qty: 90 RF: 4 nitroglycerin [Nitrostat] 0.4 mg Tablet, Sublingual 0.4 mg sublingual Q5M PRN (Reason: Chest Pain) Qty: 25 RF: 4 No Action No Known Home Medications RF: 0 Discharge Orders: Discharge Order (Routine); Ordered 11/03/19 Ordered By: Rakesh Baldwin Referrals: Eli Edouard FNP [Nurse Practitioner] - 7-10 days Discharge Activity: Increase activity as tolerated and Limit activity as instructed Activity Restrictions/Additional Instructions: Avoid the extremes of heat and humidity for 2 weeks. No lifting over 5 pounds for 2 days with the right upper extremity. Begin taking prescriptions today. Discharge Attestations Time Spent in Discharge Care*: less than 30 min Specific Discharge Activities: Specific discharge activities: educating patient Time Spent in Smoking Cessation: Time spent discussing smoking cessation with patient: 3 to 10 minutes Quality Metrics Clinical Quality Measures During this hospital stay, did patient experience: AMI Clinical Trial Participant: No Contraindication to aspirin (AMI): Aspirin given Contraindication to statin: Statin prescribed Contraindication to PCI: PCI performed Coding Level of Care Code Established Pt Acute Glazing Department Supervisor for Yeimyg Fwd Patient Type Established History Detailed Exam Detailed Medical Decision Making Moderate Complexity Diagnoses ST elevation myocardial infarction (STEMI) I21.3 Essential hypertension I10 Tobacco abuse Z72.0
[2019-11-03] MEDS: clopidogrel 75 mg Tablet PO (07:44)
[2019-11-03] MEDS: ALPRAZolam 0.25 mg Tablet PO (07:44)
[2019-11-03] MEDS: aspirin 81 mg EC Tablet PO (07:45)
[2019-11-03 08:59] VITALS: BP 141/62; PULSE 70; RESP 19; TEMP 36.9; O2SAT 93
--- NOTE | 2019-11-03 09:03 | PC.NURSE ---
case mgt Notified case mgt/social studies teacher that pt does not have a PCP. Pt stated she lives in [facility] and preferred not to see Donald as her PCP.
--- NOTE | 2019-11-03 09:30 | PC.NURSE ---
Discharge to home Instructed pt to follow-up with a pcp and orthopedic physician assistant as discuss. Educated pt on medication adherence, educated her on new meds actions, timing, dosing, frequency and possible side effects. Pt teaches back on meds. She is verbalizing her plan to quit smoking. Encourage her to quit. Mentioned to her a cardiac rehab exercises and lifestyle and stress mgt. Educated pt to check her BP twice a day and keep a record of it, post heart attack stoplight. Pt verbalizes understanding. Provided pt a cardiac rehab packet and her discharge papers. Pt does not have any questions or concerns at this time when asked.
--- NOTE | 2019-11-04 11:17 | PC.RESP ---
Smoking Cessation information and a schedule of classes sent to patient.
== END 2019-11-03 09:45 | disposition home or self-care (01) | DRG 247 ==
LOC: ER 05:45 → CCL 06:08 → CSU 08:12
PROVIDERS: Emergency Medicine; Admitting Provider Internal Medicine Cardiovascular Disease; Visit Provider Internal Medicine Cardiovascular Disease
DX: I21.3 ST elevation (STEMI) myocardial infarction of unspecified site (principal); I10 Essential (primary) hypertension; F17.210 Nicotine dependence, cigarettes, uncomplicated; R00.1 Bradycardia, unspecified; I95.9 Hypotension, unspecified
CPT/HCPCS: 12345; 36415; 71045; 80048; 80053; 82550; 84484; 85025; 85610; 85730; 93005; 93306; 99283; J0461; J1644; J2250; J2405; J3010; J3490; J7030; J7040

== ENCOUNTER 2019-11-06 12:26 | Emergency (ER) | payer BC, SELFPAY ==
[2019-11-06] VITALS (10 sets, daily range): BP systolic 129–196; BP diastolic 57–95; PULSE 51–64; RESP 14–18; TEMP 37.1; O2SAT 96–98; BMI 25.0
--- NOTE | 2019-11-06 13:08 | XRR_ITS ---
PROCEDURE INFORMATION: Exam: XR Chest, 1 View Exam date and time: 11/06/2019 1:28 PM Age: 53 years old Clinical indication: Chest pain; Type not specified; Patient HX: C/O dizziness, fainting since 11/02/19 TECHNIQUE: Imaging protocol: XR of the chest Views: 1 view. COMPARISON: CR (CHEST, ) 11/02/2019 5:35 AM FINDINGS: Lungs: No lung consolidation or pulmonary edema. Pleural space: No pleural effusion or pneumothorax. Heart/Mediastinum: The cardiac silhouette is not enlarged. The mediastinal contours are normal. Bones/joints: No acute osseous abnormality. Soft tissues: There is a left epicardial fat pad. XR/XR chest 1V portable [id number] IMPRESSION: No acute abnormality.
--- NOTE | 2019-11-06 13:15 | PC.NURSE ---
XR performed at bedside.
--- NOTE | 2019-11-06 13:16 | ED_ITS ---
HPI - Dizziness General: Chief Complaint: Dizziness Stated Complaint: DIZZY/FAINT Time Seen by Provider: 11/06/19 12:36 History of Present Illness: HPI Narrative: This patient is a 53-year-old female presenting today with feeling that she is going to pass out. On Monday she came in with chest pain and a couple of syncopal episodes and was found to have a STEMI and had a stent placed by Dr. Baldwin. She started on Plavix and carvedilol as well as aspirin and atorvastatin. In the past she has been on Lexapro and Lopressor but had stopped both of those in February when she moved to the area and did not have a doctor. She is also been a longtime smoker but has not smoked since she got out of the hospital. She is very anxious and fearful and said she is afraid to go to sleep because she is afraid she will wake up. Additionally her mother a year ago with complications from a heart procedure. Her is currently out of town and her young son is living with her. She denies chest pain or palpitations. She has had some nausea and felt sweaty earlier. MD elicited complaint: dizziness Onset (ago): hour(s) (3) Timing: sudden onset Severity: moderate Description: near-syncope Context: change in medication and anxiety Associated symptoms: Denies chest pain, chills, malaise, nausea or vomiting Associated neuro symptoms: Deny confusion or extremity weakness Review of Systems General: Reports: 10 or more systems reviewed and unremarkable except in HPI and below Const: Denies: fever(s), chills, fatigue or malaise Eyes: Denies: change in vision ENMT: Denies: odynophagia Card: Reports: lightheadedness and pre-syncope; Denies: chest pain or swelling of feet/ankles Resp: Reports: dyspnea; Denies: productive cough or non-productive cough GI: Denies: abdominal pain, nausea or vomiting : Denies: flank pain or difficulty voiding Musc: Denies: neck pain or back pain Skin/Breast: Denies: rash Neuro: Denies: confusion Psych: Reports: anxiety and sleeping less Pepito/Lymph: Denies: easy bruising or easy bleeding PFS ED PFSH: Medical History Essential hypertension Tobacco abuse Surgical History H/O: hysterectomy Physical Exam Const: COMMON NORMALS: no acute distress, patient oriented x3, no limitations and alert GENERAL APPEARANCE: cooperative and comfortable HENMT: HEAD & SCALP: normal to inspection FACE & SINUS: normal facial exam Eye: GENERAL EYE: appearance normal, both eyes and all related structures Neck/C-Spine: COMMON NORMALS: supple, no meningeal signs and no JVD Chest: COMMONS NORMALS: normal inspection of the chest Resp: COMMON NORMALS: normal respiratory effort, No use of accessory muscles and clear to auscultation bilaterally AUSCULTATION: clear to auscultation bilaterally Cardio: COMMON NORMALS: no JVD, regular rate, regular rhythm and No murmurs present (Cardio) RATE: regular rate RHYTHM: regular rhythm GI: COMMON NORMALS: Normal to inspection, nondistended, normoactive bowel sounds present, Soft to palpation and non-tender INSPECTION: Yes normal to inspection AUSCULTATION: Yes normoactive bowel sounds PALPATION: Yes Soft to palpation Back/Pelvis: COMMON NORMALS: thoracic and lumbar spine normal to inspection Extremity: COMMON NORMALS: normal to inspection Neuro: COMMON NORMALS: patient oriented x3, moves all extremities, no focal motor deficits and no sensory deficits noted SENSORIUM/ORIENTATION: Yes alert MENINGEAL SIGNS: Yes no meningeal signs Psych: COMMON NORMALS: mental status grossly normal and cooperative MOOD & AFFECT: Yes anxious Skin: COMMON NORMALS: no rashes or lesions noted and turgor normal GENERAL SKIN EXAM: no rashes or lesions noted and turgor normal Course ED course: Very anxious (understandably) patient after an NE and on the first anniversary of her mother dying in an ED. Troponin high, but decreasing and likely related to her NE on Monday. EKG with changes consistent with recent NE - doubt new ischemia. Discussed counseling and gave a script for xanax. Vital Signs: Vital signs: Vital Signs Temperature 98.7 F 11/06/19 12:31 Pulse Rate 52 L 11/06/19 18:28 Respiratory Rate 14 11/06/19 18:28 Blood Pressure 153/72 11/06/19 18:28 Pulse Oximetry 97 11/06/19 18:28 MDM - Dizziness Lab Data: Labs: Lab Results 11/06/19 11/06/19 11/06/19 Range/Units 12:35 13:32 13:32 WBC 10.2 H (4.0-10.0) 10^3/ uL RBC 4.43 (4.1-5.3) 10^6/u L Hgb 15.0 (11.5-15.3) g/dL Hct 45.4 (37.0-47.0) % MCV 102.5 H (81-99) fL MCH 33.9 (28.0-34.0) pg MCHC 33.0 (30.0-36.0) g/dL RDW 12.3 (12.1-15.1) % Plt Count 233 (130-400) 10^3/c mm MPV 11.7 H (7.4-10.4) fL Neut % (Auto) 69.3 % Lymph % (Auto) 23.1 % [place] % (Auto) 5.9 % Eos % (Auto) 0.8 % Baso % (Auto) 0.6 % Neut # (Auto) 7.05 (1.8-7.7) 10^3/u L Lymph # (Auto) 2.4 (0.8-4.8) 10^3/u L [place] # (Auto) 0.6 (0.2-0.9) 10^3/u L Eos # (Auto) 0.1 (0.0-0.8) 10^3/u L Baso # (Auto) 0.1 (0.0-0.1) 10^3/u L Nucleated RBC % (a uto) 0 % Nucleated RBCs # 0.0 /100WBC PT 13.20 (10.5-13.3) SECO NDS INR 0.97 (0.8-1.2) Sodium (136-145) mmol/L Potassium (3.5-5.1) mmol/L Chloride (98-107) mmol/L Carbon Dioxide (22-29) mmol/L Anion Gap (5-19) BUN (6-20) mg/dL Creatinine (0.5-0.9) mg/dL GFR Calculation (90-130) mL/min Glucose (65-115) mg/dL Calculated Osmolal ity (285-295) mOsm/k g Calcium (8.5-10.5) mg/dL Total Bilirubin (0.15-1.2) mg/dL AST (0-32) U/L ALT (0-33) U/L Alkaline Phosphata se (35-105) IU/L Troponin T Baselin e (0-10) ng/L Troponin T 120 Min [place] (0-10) ng/L Delta Troponin T (0-10) ABS# Total Protein (6.6-8.7) g/dL Albumin (3.5-5.2) g/dL Globulin (1.3-4.6) g/dL Urine Color Yellow (Yellow) Urine Appearance Clear (CLEAR) Urine pH 7 (5-7) Ur Specific Gravit y 1.005 (1.005-1.030) Urine Protein Neg (Negative) Urine Glucose (UA) Norm (Normal) Urine Ketones Negative (Negative) Urine Blood Neg (Negative) Urine Nitrate Negative (Negative) Urine Bilirubin Neg (NEGATIVE) Urine Urobilinogen Norm (Negative) mg/dL Ur Leukocyte [place] ase Negative (Negative) 11/06/19 11/06/19 11/06/19 Range/Units 13:32 13:32 17:04 WBC (4.0-10.0) 10^3/ uL RBC (4.1-5.3) 10^6/u L Hgb (11.5-15.3) g/dL Hct (37.0-47.0) % MCV (81-99) fL MCH (28.0-34.0) pg MCHC (30.0-36.0) g/dL RDW (12.1-15.1) % Plt Count (130-400) 10^3/c mm MPV (7.4-10.4) fL Neut % (Auto) % Lymph % (Auto) % [place] % (Auto) % Eos % (Auto) % Baso % (Auto) % Neut # (Auto) (1.8-7.7) 10^3/u L Lymph # (Auto) (0.8-4.8) 10^3/u L [place] # (Auto) (0.2-0.9) 10^3/u L Eos # (Auto) (0.0-0.8) 10^3/u L Baso # (Auto) (0.0-0.1) 10^3/u L Nucleated RBC % (a uto) % Nucleated RBCs # /100WBC PT (10.5-13.3) SECO NDS INR (0.8-1.2) Sodium 143 (136-145) mmol/L Potassium 4.4 (3.5-5.1) mmol/L Chloride 106 (98-107) mmol/L Carbon Dioxide 27 (22-29) mmol/L Anion Gap 14.4 (5-19) BUN 14 (6-20) mg/dL Creatinine 0.8 (0.5-0.9) mg/dL GFR Calculation 75.0 L (90-130) mL/min Glucose 109 (65-115) mg/dL Calculated Osmolal ity 293 (285-295) mOsm/k g Calcium 9.6 (8.5-10.5) mg/dL Total Bilirubin 0.5 (0.15-1.2) mg/dL AST 22 (0-32) U/L ALT 32 (0-33) U/L Alkaline Phosphata se 108 H (35-105) IU/L Troponin T Baselin e 2387 H* (0-10) ng/L Troponin T 120 Min [place] 2261 H (0-10) ng/L Delta Troponin T -126 L (0-10) ABS# Total Protein 7.1 (6.6-8.7) g/dL Albumin 4.7 (3.5-5.2) g/dL Globulin 2.4 (1.3-4.6) g/dL Urine Color (Yellow) Urine Appearance (CLEAR) Urine pH (5-7) Ur Specific Gravit y (1.005-1.030) Urine Protein (Negative) Urine Glucose (UA) (Normal) Urine Ketones (Negative) Urine Blood (Negative) Urine Nitrate (Negative) Urine Bilirubin (NEGATIVE) Urine Urobilinogen (Negative) mg/dL Ur Leukocyte [place] ase (Negative) EKG Data^: EKG 1: EKG interpretation time: 12:57 Interpretation: Sinus bradycardia at a rate of 57 with normal intervals and axis. Inverted T wave in 3, aVF, biphasic T wave in V3. No acute ischemic changes. Discharge Plan Discharge Patient Disposition: Home, Self-Care Clinical Impression: Anxiety Condition: Stable Prescriptions: New alprazolam 0.5 mg tablet 0.25 mg PO TID PRN (Reason: anxiety) Qty: 20 RF: 0 No Action atorvastatin 40 mg Tablet 40 mg PO BEDTIME Qty: 30 RF: 4 clopidogrel 75 mg Tablet 75 mg PO DAILY Qty: 90 RF: 4 aspirin 81 mg Tablet,Delayed Release (Dr/Ec) 81 mg PO DAILY Qty: 100 RF: 2 nitroglycerin [Nitrostat] 0.4 mg Tablet, Sublingual 0.4 mg sublingual Q5M PRN (Reason: Chest Pain) Qty: 25 RF: 4 carvedilol 3.125 mg tablet 3.125 mg PO BID Qty: 60 RF: 3 Discharge Orders: Discharge Order (Routine); Ordered 11/06/19 Ordered By: Giulia Deluna Discharge Diet: Usual diet Discharge Activity: Resume usual activity Patient Instructions: Anxiety (ED) Activity Restrictions/Additional Instructions: Continue to take your regular medications. Keep your follow-up appointment with the cardiology office as scheduled. Use the Xanax as needed for anxiety. Our supportive employment case manager should be contacting you to assist with finding a new primary care provider. Please return to the emergency department if you continue to have problems with anxiety, chest pain, shortness of breath. Continue your efforts to not smoke as this is extremely important to avoid future heart disease. Discharge Date/Time: 11/06/19 18:32 Coding Level of Care Code ED Control Technician for Romain Valentine Exam Comprehensive
--- NOTE | 2019-11-06 13:21 | PC.NURSE ---
Pt ambulated to the BR
[2019-11-06] MEDS: ALPRAZolam 0.5 mg Tablet PO (13:24)
[2019-11-06 13:25] LABS: Add Urine Microscopic? NO
[2019-11-06 14:17] LABS: Basophils # 0.1 10^3/uL (0.0-0.1); Basophils % 0.6 %; Eosinophils # 0.1 10^3/uL (0.0-0.8); Eosinophils % 0.8 %; Hematocrit 45.4 % (37.0-47.0); Lymphocytes # 2.4 10^3/uL (0.8-4.8); Lymphocytes % 23.1 %; Mean Corpuscular Hemoglobin 33.9 pg (28.0-34.0); Mean Corpuscular Volume 102.5 fL (81-99); Mean Platelet Volume 11.7 fL (7.4-10.4); Monocytes # 0.6 10^3/uL (0.2-0.9); Monocytes % 5.9 %; Neutrophils # 7.05 10^3/uL (1.8-7.7); Neutrophils % 69.3 %; Nucleated Red Blood Cells % 0 %; Platelet Count 233 10^3/cmm (130-400); Red Blood Count 4.43 10^6/uL (4.1-5.3); Red Cell Distribution Width 12.3 % (12.1-15.1); White Blood Count 10.2 10^3/uL (4.0-10.0)
[2019-11-06 14:19] LABS: Bilirubin Urine Neg (NEGATIVE); Blood Urine Neg (Negative); Glucose Urine UA Norm (Normal); Ketones Urine Negative (Negative); Leukocyte Esterase Urine Negative (Negative); Nitrate Urine Negative (Negative); Protein Urine Neg (Negative); Specific Gravity, Urine 1.005 (1.005-1.030); Urine Appearance Clear (CLEAR); Urine Color Yellow (Yellow); Urobilinogen Urine Norm (Negative); pH Urine 7 (5-7)
[2019-11-06 14:21] LABS: INR 0.97 (0.8-1.2)
[2019-11-06 14:31] LABS: Alanine Aminotransferase 32 U/L (0-33); Albumin Level 4.7 g/dL (3.5-5.2); Alkaline Phosphatase 108 IU/L (35-105); Anion Gap 14.4 (5-19); Aspartate Amino Transferase 22 U/L (0-32); Blood Urea Nitrogen 14 mg/dL (6-20); Calcium 9.6 mg/dL (8.5-10.5); Carbon Dioxide 27 mmol/L (22-29); Chloride 106 mmol/L (98-107); Globulin 2.4 g/dL (1.3-4.6); Glucose 109 mg/dL (65-115); Osmolality Calculated 293 mOsm/kg (285-295); Potassium 4.4 mmol/L (3.5-5.1); Sodium 143 mmol/L (136-145); Total Bilirubin 0.5 mg/dL (0.15-1.2); Total Protein 7.1 g/dL (6.6-8.7)
--- NOTE | 2019-11-06 14:34 | ECG_ITS ---
[facility] Test Date: 2019-11-06 Pat Name: Bette Wise Department: Room: Gender: Female Foundry Hand: : 1965 Requested By: Giulia George Order Number: [id number] Tyler MD: Chantal Barrios M.D. Measurements Intervals [place] Rate: 51 P: 54 RI: 144 QRS: 4 QRSD: 88 T: -19 QT: 455 QTc: 420 Interpretive Statements SINUS BRADYCARDIA POSSIBLE LEFT ATRIAL ENLARGEMENT [-0.1mV P WAVE IN V1/V2] POSSIBLE INFERIOR WY OF INDETERMINATE AGE Compared to ECG 11/02/2019 12:37:33 Sinus rhythm no longer present Myocardial infarct finding no longer present Electronically Signed On 11-06-2019 22:41:15 CDT by Chantal Barrios M.D. [id number] f
[2019-11-06 15:06] LABS: Troponin(5th) Baseline 2387 ng/L (0-10)
--- NOTE | 2019-11-06 16:34 | ECG_ITS ---
[facility] Test Date: 2019-11-06 Pat Name: Bette Wise Department: Room: Gender: Female Audio Narrator: : 1965 Requested By: Giulia George Order Number: [id number] Tyler MD: Chantal Barrios M.D. Measurements Intervals [place] Rate: 57 P: 46 AL: 138 QRS: 17 QRSD: 84 T: -28 QT: 426 QTc: 418 Interpretive Statements SINUS BRADYCARDIA POSSIBLE RIGHT VENTRICULAR CONDUCTION DELAY POSSIBLE INFERIOR MYOCARDIAL INFARCTION, OF INDETERMINATE AGE Compared to ECG 11/02/2019 12:37:33 T-wave abnormality now present Sinus rhythm no longer present Myocardial infarct finding no longer present Electronically Signed On 11-06-2019 16:57:04 CDT by Chantal Barrios M.D. [id number] f
[2019-11-06 17:35] LABS: Troponin 5 2HR 2261 ng/L (0-10)
--- NOTE | 2019-11-06 20:34 | ECG_ITS ---
[facility] Test Date: 2019-11-06 Pat Name: Bette Wise Department: Room: Gender: Female Ripening Room Attendant: : 1965 Requested By: Giulia George Order Number: [id number] Tylre MD: Chantal Barrios M.D. Measurements Intervals [place] Rate: 49 P: 47 [place]: 146 QRS: 2 QRSD: 88 T: -14 QT: 447 QTc: 407 Interpretive Statements SINUS BRADYCARDIA POSSIBLE RIGHT VENTRICULAR CONDUCTION DELAY POSSIBLE INFERIOR [place] OF INDETERMINATE AGE Compared to ECG 11/06/2019 14:54:16 No significant changes Electronically Signed On 11-06-2019 22:43:07 CDT by Chantal Barrios M.D. [id number] f
--- NOTE | 2019-11-07 11:03 | DCPLANNER ---
interactive media project manager had message to speak with patient about getting established with a primary care physician. interactive media project manager called [phone], unable to speak with patient at this time, a voicemail was left for patient to return family service caseworker phone call.
== END 2019-11-06 18:32 | disposition home or self-care (01) ==
PROVIDERS: Emergency Provider Emergency Medicine
DX: F41.9 Anxiety disorder, unspecified (principal); Z79.02 Long term (current) use of antithrombotics/antiplatelets; Z79.82 Long term (current) use of aspirin; I10 Essential (primary) hypertension
CPT/HCPCS: 12345; 36415; 71045; 80053; 81003; 84484; 85025; 85610; 93005; 99283

== ENCOUNTER 2020-01-20 11:58 | Emergency (ER) | payer BC, SELFPAY ==
[2020-01-20 12:07] VITALS: BP 206/61; PULSE 65; RESP 18; TEMP 37.1; O2SAT 100; BMI 25.0
--- NOTE | 2020-01-20 12:30 | ECG_ITS ---
[facility] Test Date: 2020-01-20 Pat Name: Bette Wise Department: Room: Gender: Female Director Of Student Financial Services: : 1965 Requested By: Salty George Order Number: [id number] Tyler MD: Philip Gonzalez M.D. Measurements Intervals [place] Rate: 65 P: 25 MA: 128 QRS: 37 QRSD: 101 T: 9 QT: 427 QTc: 445 Interpretive Statements SINUS RHYTHM WITH SINUS ARRHYTHMIA POSSIBLE RIGHT VENTRICULAR CONDUCTION DELAY [RSR (QR) IN V1/V2] Compared to ECG 11/06/2019 16:56:31 Sinus bradycardia no longer present Myocardial infarct finding no longer present Electronically Signed On 01-20-2020 17:58:05 CDT by Philip Gonzalez M.D. [id number] olvin
--- NOTE | 2020-01-20 12:30 | XR_ITS ---
WS: [id number] PORTABLE CHEST HISTORY: dyspnea/cough COMPARISON: 11/06/2019 Lungs are clear and well expanded. No pleural effusion or pneumothorax. Cardiac size: Normal. Mediastinum/Aorta: Normal mediastinum. No osseous abnormality seen. XR/XR chest 1V portable [id number] IMPRESSION: Unremarkable portable chest.
--- NOTE | 2020-01-20 12:31 | W.ED.GENADLT ---
HPI - General Adult General: Chief complaint: General Medical Stated complaint: HIGH BP Time Seen by Provider: 01/20/20 12:29 History of Present Illness: HPI narrative: 84-year-old female comes in with elevated blood pressure. She has a history of a STEMI she had on November 01 of this year. She went to cardiac rehab today and her blood pressure was markedly elevated over 200, on arrival here she is 206/61. She did recently stop her Coreg she was at 3.125 twice daily and was actually hypotensive it was decreased to daily and then stopped. She also recently started lovastatin after having adverse effects to Lipitor. She has started to have a bit of a headache. Onset (ago): minute(s) Radiation: non-radiation Severity: severe Quality: dull Pain Consistency: constant Relieving factors: none Exacerbating factors: none Associated symptoms: Reports headache(s); Deny chest pain, confusion, cough, diaphoresis, decreased appetite, dyspnea, fevers/chills, malaise, nausea, rash, palpitations, seizures, short of breath, syncope, vomiting or weakness Treatments prior to arrival: none Review of Systems Const: Denies: malaise or diaphoresis ENMT: Denies: throat pain, ear or mastoid pain, nasal discharge or nasal congestion Card: Denies: chest pain, palpitations or syncope Resp: Denies: dyspnea GI: Denies: nausea or vomiting : Denies: flank pain, difficulty voiding, dysuria, urinary frequency or urinary urgency Skin/Breast: Denies: rash Neuro: Reports: headache(s); Denies: confusion PFSH ED PFSH: Medical History Coronary artery disease Dyslipidemia Essential hypertension Tobacco abuse Surgical History H/O: hysterectomy S/P right coronary artery (RCA) stent placement Social History Smoking and tobacco status: former smoker Quit status (tobacco): has quit using tobacco Alcohol intake: current Alcohol intake frequency: holidays/special occasions only History of recent travel: No Current gender identity: Female Physical Exam Const: COMMON NORMALS: no acute distress GENERAL APPEARANCE: cooperative and comfortable ORIENTATION/CONSCIOUSNESS: Yes awake, Yes oriented to person, Yes oriented to place and Yes oriented to time HENMT: COMMON NORMALS: normocephalic, atraumatic and hearing grossly normal bilaterally HEAD & SCALP: normocephalic and atraumatic Eye: COMMON NORMALS: Equal, round and reactive pupils present, EOMs intact bilaterally, conjunctivae normal and no scleral icterus CONJUNCTIVA: Yes conjunctivae normal PUPIL: Yes Equal, round and reactive pupils present Neck/C-Spine: COMMON NORMALS: no JVD Resp: COMMON NORMALS: normal respiratory effort, No retractions, No use of accessory muscles and clear to auscultation bilaterally AUSCULTATION: clear to auscultation bilaterally Cardio: COMMON NORMALS: no JVD, regular rate, regular rhythm and No murmurs present (Cardio) RATE: regular rate RHYTHM: regular rhythm GI: COMMON NORMALS: Soft to palpation and No hepatosplenomegaly present AUSCULTATION: Yes normoactive bowel sounds PALPATION: Yes Soft to palpation, No Tenderness to palpation present (GI), No Guarding due to palpation present (GI) and Yes No hepatosplenomegaly present Extremity: COMMON NORMALS: normal to inspection, capillary refill normal, no clubbing, cyanosis or edema, no calf tenderness and no pedal edema Neuro: SENSORIUM/ORIENTATION: Yes oriented to person, Yes oriented to place and Yes oriented to time Skin: COMMON NORMALS: no rashes or lesions noted GENERAL SKIN EXAM: no rashes or lesions noted Course Vital Signs: Vital signs: Vital Signs Temperature 98.7 F 01/20/20 12:07 Pulse Rate 92 01/20/20 14:46 Respiratory Rate 21 H 01/20/20 14:46 Blood Pressure 166/80 01/20/20 14:46 Pulse Oximetry 93 01/20/20 14:46 MDM - General Adult MDM Narrative: Medical decision making narrative: Patient feeling well and like to go home. Blood pressure was significantly elevated on arrival. Will start on lisinopril and amlodipine 5 mg p.o. daily and can add amlodipine if blood pressure is still elevated strongly recommend continue to monitor blood pressure and follow-up with primary care doctor within the next 3 to 5 days return if has any problems Lab Data: Labs: Lab Results 01/20/20 01/20/20 Range/Units 12:50 12:50 WBC 7.4 (4.0-10.0) 10^3/ uL RBC 4.41 (4.1-5.3) 10^6/u L Hgb 14.4 (11.5-15.3) g/dL Hct 45.0 (37.0-47.0) % MCV 102.0 H (81-99) fL MCH 32.7 (28.0-34.0) pg MCHC 32.0 (30.0-36.0) g/dL RDW 12.0 L (12.1-15.1) % Plt Count 205 (130-400) 10^3/c mm MPV 11.5 H (7.4-10.4) fL Neut % (Auto) 59.3 % Lymph % (Auto) 30.7 % Tompkins % (Auto) 7.8 % Eos % (Auto) 1.2 % Baso % (Auto) 0.5 % Neut # (Auto) 4.38 (1.8-7.7) 10^3/u L Lymph # (Auto) 2.3 (0.8-4.8) 10^3/u L Tompkins # (Auto) 0.6 (0.2-0.9) 10^3/u L Eos # (Auto) 0.1 (0.0-0.8) 10^3/u L Baso # (Auto) 0.0 (0.0-0.1) 10^3/u L Nucleated RBC % (a uto) 0 % Nucleated RBCs # 0.0 /100WBC Sodium 143 (136-145) mmol/L Potassium 4.1 (3.5-5.1) mmol/L Chloride 105 (98-107) mmol/L Carbon Dioxide 26 (22-29) mmol/L Anion Gap 16.1 (5-19) BUN 10 (6-20) mg/dL Creatinine 0.7 (0.5-0.9) mg/dL GFR Calculation 87.2 L (90-130) mL/min Glucose 104 (65-115) mg/dL Calculated Osmolal ity 295 (285-295) mOsm/k g Calcium 10.0 (8.5-10.5) mg/dL Total Bilirubin 0.3 (0.15-1.2) mg/dL AST 17 (0-32) U/L ALT 19 (0-33) U/L Alkaline Phosphata se 91 (35-105) IU/L Total Protein 7.3 (6.6-8.7) g/dL Albumin 4.8 (3.5-5.2) g/dL Globulin 2.5 (1.3-4.6) g/dL Discharge Plan Discharge Patient Disposition: Home Clinical Impression: Essential hypertension, Coronary artery disease Condition: Stable Prescriptions: New lisinopril 10 mg tablet 5 mg PO DAILY Qty: 30 RF: 0 amlodipine 5 mg tablet 5 mg PO DAILY Qty: 30 RF: 0 No Action clonazepam 0.5 mg tablet 0.5 mg PO DAILY PRN (Reason: Anxiety) RF: 0 fluoxetine 10 mg capsule 10 mg PO DAILY 30 Days Qty: 30 RF: 0 Tylenol Extra Strength 2 tab PO PRN RF: 0 lovastatin 10 mg tablet 10 mg PO QPM RF: 0 clopidogrel 75 mg Tablet 75 mg PO DAILY Qty: 90 RF: 4 aspirin 81 mg Tablet,Delayed Release (Dr/Ec) 81 mg PO DAILY Qty: 100 RF: 2 nitroglycerin [Nitrostat] 0.4 mg Tablet, Sublingual 0.4 mg sublingual Q5M PRN (Reason: Chest Pain) Qty: 25 RF: 4 Discharge Orders: Discharge Order (Routine); Ordered 01/20/20 Ordered By: Salty Wilhelm Referrals: Janis Morales MD [Primary Care Provider] - Activity Restrictions/Additional Instructions: Follow-up with your doctor within the next 3 to 5 days to recheck on blood pressure. Discharge Date/Time: 01/20/20 15:20 Coding Level of Care Code ED Supervising Broker for Chg Fwd Exam Comprehensive
--- NOTE | 2020-01-20 12:37 | PC.NURSE ---
RADIAOLOGY AT BEDSIDE PERFORMING CXR WITH PORTABLE XRAY MACHINE.
[2020-01-20 13:01] VITALS: BP 200/80; PULSE 76; RESP 19; O2SAT 99
[2020-01-20] MEDS: hyDRALAzine 20 mg/mL INJ 1 mL 10 MG IVP (13:06)
[2020-01-20 13:25] LABS: Basophils % 0.5 %; Eosinophils # 0.1 10^3/uL (0.0-0.8); Eosinophils % 1.2 %; Hemoglobin 14.4 g/dL (11.5-15.3); Lymphocytes # 2.3 10^3/uL (0.8-4.8); Lymphocytes % 30.7 %; Mean Corpuscular Hemoglobin 32.7 pg (28.0-34.0); Mean Platelet Volume 11.5 fL (7.4-10.4); Monocytes # 0.6 10^3/uL (0.2-0.9); Monocytes % 7.8 %; Neutrophils # 4.38 10^3/uL (1.8-7.7); Neutrophils % 59.3 %; Nucleated Red Blood Cells % 0 %; Platelet Count 205 10^3/cmm (130-400); Red Blood Count 4.41 10^6/uL (4.1-5.3); White Blood Count 7.4 10^3/uL (4.0-10.0)
[2020-01-20 13:30] VITALS: BP 199/64; PULSE 74; RESP 17; O2SAT 98
[2020-01-20 13:50] LABS: Alanine Aminotransferase 19 U/L (0-33); Albumin Level 4.8 g/dL (3.5-5.2); Alkaline Phosphatase 91 IU/L (35-105); Anion Gap 16.1 (5-19); Aspartate Amino Transferase 17 U/L (0-32); Blood Urea Nitrogen 10 mg/dL (6-20); Carbon Dioxide 26 mmol/L (22-29); Chloride 105 mmol/L (98-107); Globulin 2.5 g/dL (1.3-4.6); Glomerular Filtration Rate 87.2 mL/min (90-130); Glucose 104 mg/dL (65-115); Osmolality Calculated 295 mOsm/kg (285-295); Potassium 4.1 mmol/L (3.5-5.1); Sodium 143 mmol/L (136-145); Total Bilirubin 0.3 mg/dL (0.15-1.2); Total Protein 7.3 g/dL (6.6-8.7)
[2020-01-20 14:00] VITALS: BP 185/87; PULSE 87; RESP 19; O2SAT 97
[2020-01-20] MEDS: LORazepam 2 mg/mL INJ 1 mL 1 MG IVP (14:24)
[2020-01-20] MEDS: amlodipine 5 mg Tablet PO (14:24)
[2020-01-20] MEDS: carvedilol 3.125 mg Tablet PO (14:24)
[2020-01-20 14:46] VITALS: BP 166/80; PULSE 92; RESP 21; O2SAT 93
== END 2020-01-20 15:20 | disposition home or self-care (01) ==
PROVIDERS: Emergency Provider Family Medicine; PCP Family Medicine
DX: I10 Essential (primary) hypertension (principal); I25.10 Atherosclerotic heart disease of native coronary artery without angina pectoris; Z79.02 Long term (current) use of antithrombotics/antiplatelets; Z79.82 Long term (current) use of aspirin; E78.5 Hyperlipidemia, unspecified; Z87.891 Personal history of nicotine dependence
CPT/HCPCS: 12345; 71045; 80053; 85025; 93005; 96374; 96375; 99283; J0360; J2060

== ENCOUNTER → 2020-04-27 14:27 | Outpatient (BNVA) | payer BC, SELFPAY | PROVIDERS: PCP Family Medicine; Visit Provider Family Medicine | DX: I10 Essential (primary) hypertension (principal); F41.9 Anxiety disorder, unspecified; I25.10 Atherosclerotic heart disease of native coronary artery without angina pectoris; E78.5 Hyperlipidemia, unspecified; Z87.891 Personal history of nicotine dependence; M77.8 Other enthesopathies, not elsewhere classified | CPT/HCPCS: 80053; 80061 ==

== ENCOUNTER → 2021-03-22 10:45 | Outpatient (BNVA) | payer OTHER, SELFPAY | PROVIDERS: PCP Family Medicine; Visit Provider Family Medicine | DX: E78.5 Hyperlipidemia, unspecified (principal); I25.10 Atherosclerotic heart disease of native coronary artery without angina pectoris; Z95.5 Presence of coronary angioplasty implant and graft; I10 Essential (primary) hypertension; R73.9 Hyperglycemia, unspecified; Z13.1 Encounter for screening for diabetes mellitus; Z68.29 Body mass index [BMI] 29.0-29.9, adult | CPT/HCPCS: 80053; 80061; 83036 ==

== ENCOUNTER → 2021-09-29 10:50 | Outpatient (BNVA) | payer OTHER, SELFPAY | PROVIDERS: PCP Family Medicine; Visit Provider Family Medicine | DX: I25.10 Atherosclerotic heart disease of native coronary artery without angina pectoris (principal); Z95.5 Presence of coronary angioplasty implant and graft; I10 Essential (primary) hypertension; R73.03 Prediabetes; L82.1 Other seborrheic keratosis; Z85.828 Personal history of other malignant neoplasm of skin; F41.9 Anxiety disorder, unspecified | CPT/HCPCS: 80048; 83036 ==

== ENCOUNTER → 2022-07-18 09:01 | Outpatient (BNVA) | payer OTHER, SELFPAY | PROVIDERS: PCP Family Medicine; Visit Provider Family Medicine | DX: R53.83 Other fatigue (principal); R73.03 Prediabetes; I10 Essential (primary) hypertension | CPT/HCPCS: 80053; 82607; 82652; 83036; 84443; 85025 ==

== ENCOUNTER → 2023-01-02 08:39 | Outpatient (BNVA) | payer OTHER, SELFPAY | PROVIDERS: PCP Family Medicine; Visit Provider Family Medicine | DX: I10 Essential (primary) hypertension (principal); E78.5 Hyperlipidemia, unspecified | CPT/HCPCS: 80053; 80061 ==

== ENCOUNTER 2024-01-11 06:00 | Day surgery (SDC) | payer OTHER, SELFPAY ==
--- NOTE | 2024-01-11 06:07 | P.HP_ITS ---
Same Day Surgery H&P Indication for Procedure/HPI DATE OF PROCEDURE: January 11, 2024 CHIEF COMPLAINT/INDICATIONFOR SURGICAL PROCEDURE: need for screening colonoscopy PREOP DIAGNOSIS: need for screening colonoscopy PLANNED PROCEDURE: Operation Date: 01/11/24 07:00 Proposed Procedures p Colonoscopy 60299, G0105, z12.11(Not Applicable) - Jamar Buchanan MD Medications/Allergies* Home Medications Medication Instructions Recorded Confirmed Type Tylenol Extra Strength 2 tab PO PRN PRN Pain 01/20/20 01/09/24 History ezetimibe 10 mg tablet (Zetia) 10 mg PO DAILY 01/09/24 01/09/24 History Allergies/Adverse Reactions Allergy/AdvReac Type Severity Reaction Status Date / Time metoprolol Allergy Mild ADR-Palpita Verified 01/09/24 10:29 tions Pertinent History/Comorbid Conditions* Medical History (Updated 06/06/23 @ 10:52 by Janis Morales MD) PTSD (post-traumatic stress disorder) Anxiety Dyslipidemia Coronary artery disease Unable to tolerate BB. Tobacco abuse stopped in 11/2019 Essential hypertension Does not tolerate BB ST elevation myocardial infarction (STEMI) (~10/2019) Surgical History (Updated 02/21/20 @ 14:40 by Lisa Sargent APN, PIPPA) History of tonsillectomy and adenoidectomy (~1982) S/P right coronary artery (RCA) stent placement (~10/2019) H/O: hysterectomy (~2009) LAVH, bilateral salpingectomy, Right oophorectomy, Bladder sling. Left ovary spared. Performed for bleeding. [facility] Family History (Updated 02/21/20 @ 13:25 by Rena Avina) Adopted Family/Other UNKNOWN FAMILY HX Social History Smoking and tobacco/nicotine status: current some day tobacco/nicotine user Quit status (tobacco/nicotine): has quit using Alcohol intake: current Alcohol intake frequency: holidays/special occasions only Substance/Drug Use: never Additional social history: - Tobacco use: former smoker-- November 2019 Alcohol use: Occasional Drug use: Never Pertinent Exam Findings alert, oriented x 3 and clear to auscultation bilaterally Recommendations Surgery/Procedure today Coding Level of Care Code Acute Code for Chg Fwd
[2024-01-11 06:16] VITALS: BP 114/67; PULSE 66; RESP 18; TEMP 36.1; O2SAT 96; BMI 28.1
[2024-01-11] MEDS: sodium chloride 0.9% 1,000 ML 30 ML IV (06:28)
--- NOTE | 2024-01-11 07:09 | P.ANESASSM_ITS ---
Pre-Anesthetic Assessment Height/Weight: Height 5 ft 7 in Weight 180 lb Temp Pulse Resp BP Pulse Ox O2 Del Method 97 F L 66 18 114/67 96 Room Air 01/11/24 06:16 01/11/24 06:16 01/11/24 06:16 01/11/24 06:16 01/11/24 06:16 01/11/24 06:16 Preop Diagnosis: need for screening colonoscopy Operation Date: 01/11/24 07:00 Proposed Procedures p Colonoscopy 18413, G0105, z12.11(Not Applicable) - Jamar Buchanan MD Last intake: Intake Last Liquid Date 01/10/24 Last Liquid Time 20:00 Last Solid Date 01/09/24 Last Solid Time 21:00 Social No alcohol Prior smoker Exam alert, oriented x 3, clear to auscultation bilaterally and regular rate & rhythm Airway Submandibular: within normal limits Cervical ROM: within normal limits Mallampati: Class II Dentition: full Anesthetic Plan ASA status: 2 Anesthesia: MAC Other: No prior issues with anesthesia Completed bowel prep Prior smoker Cardiac stent in 2019 2 RCA Hypertension on lisinopril METs greater than 4 Plan for MAC anesthesia Medications/Allergies Home Medications Medication Instructions Recorded Confirmed Last Taken Type aspirin 81 mg tablet,delayed 81 mg PO DAILY #100 tabs 11/03/19 01/09/24 01/10/24 Rx release Tylenol Extra Strength 2 tab PO PRN PRN Pain 01/20/20 01/09/24 01/18/20 History nitroglycerin 0.4 mg sublingual 0.4 mg sublingual Q5M PRN Chest 06/06/23 01/09/24 Unknown Rx tablet (Nitrostat) Pain #25 tabs duloxetine 30 mg capsule,delayed 30 mg PO BID 90 days #180 caps 12/05/23 01/09/24 01/10/24 Rx release lisinopril 30 mg tablet 30 mg PO DAILY 90 days #90 tabs 12/05/23 01/09/24 01/10/24 Rx lovastatin 40 mg tablet 40 mg PO QPM 90 days #90 tabs 12/05/23 01/09/24 01/10/24 Rx ezetimibe 10 mg tablet (Zetia) 10 mg PO DAILY 01/09/24 01/09/24 01/10/24 History Allergies Allergy/AdvReac Type Severity Reaction Status Date / Time metoprolol Allergy Mild ADR-Palpita Verified 01/09/24 10:29 tions Current Medications Generic Name Dose Route Start Last Admin Trade Name Garrison PRN Reason Stop Dose Admin Sodium Chloride 1,000 mls @ 30 mls/hr 01/11/24 06:15 01/11/24 06:28 Sodium Chloride 0.9% IV 30 mls/hr .Q24H RAN Administration PFSH Anesthesia Medical History PTSD (post-traumatic stress disorder) Anxiety Dyslipidemia Coronary artery disease Unable to tolerate BB. Tobacco abuse stopped in 11/2019 Essential hypertension Does not tolerate BB ST elevation myocardial infarction (STEMI) (~10/2019) Surgical History History of tonsillectomy and adenoidectomy (~1982) S/P right coronary artery (RCA) stent placement (~10/2019) H/O: hysterectomy (~2009) LAVH, bilateral salpingectomy, Right oophorectomy, Bladder sling. Left ovary spared. Performed for bleeding. [facility] Family History Family/Other Adopted UNKNOWN FAMILY HX Social History Smoking and tobacco/nicotine status: current some day tobacco/nicotine user Quit status (tobacco/nicotine): has quit using Alcohol intake: current Alcohol intake frequency: holidays/special occasions only Substance/Drug Use: never Additional social history: - Tobacco use: former smoker-- November 2019 Alcohol use: Occasional Drug use: Never Female Reproductive History Spontaneous abortions: No Data Anesthesia Cardiac Studies: Echocardiogram Ultrasound 11/02/19
[2024-01-11 07:56] VITALS: BP 92/57; PULSE 74; RESP 16; TEMP 36.3; O2SAT 98
[2024-01-11 08:01] VITALS: BP 122/51; PULSE 71; RESP 18; O2SAT 96
[2024-01-11 08:11] VITALS: BP 124/68; PULSE 65; RESP 18; O2SAT 98
--- NOTE | 2024-01-11 08:42 | ANE.PACU2 ---
Inpatient post-anesthesia follow up: Airway intact: Yes Vital signs: Temperature 97.4 F Pulse Rate 65 Respiratory Rate 18 Blood Pressure 124/68 Pulse Oximetry 98 Oxygen Delivery Me thod Room Air Oxygen Flow Rate Fraction of Inspir ed Oxygen Hydration adequate: Yes Nausea and vomiting: No Pain level: 1 Mental status: Baseline
== END 2024-01-11 08:42 | disposition home or self-care (01) ==
PROVIDERS: PCP Family Medicine; Visit Provider Surgery
PROC: 0DJD8ZZ Inspection of Lower Intestinal Tract, Via Natural or Artificial Opening Endoscopic (ICD-10-PCS; CPT 45378; principal; 2024-01-11 07:00)
DX: Z12.11 Encounter for screening for malignant neoplasm of colon (principal); I10 Essential (primary) hypertension; F17.200 Nicotine dependence, unspecified, uncomplicated; Z95.5 Presence of coronary angioplasty implant and graft; D12.4 Benign neoplasm of descending colon; D12.5 Benign neoplasm of sigmoid colon; D12.3 Benign neoplasm of transverse colon; K62.1 Rectal polyp
CPT/HCPCS: 45380; 45385; 88305; J2704; J3490; J7030

== ENCOUNTER → 2024-06-04 09:56 | Outpatient (BNVA) | payer OTHER, SELFPAY | PROVIDERS: PCP Family Medicine; Visit Provider Family Medicine | DX: I10 Essential (primary) hypertension (principal); I25.10 Atherosclerotic heart disease of native coronary artery without angina pectoris; E78.5 Hyperlipidemia, unspecified; R73.9 Hyperglycemia, unspecified; G47.00 Insomnia, unspecified; F41.9 Anxiety disorder, unspecified; F51.01 Primary insomnia; Z13.1 Encounter for screening for diabetes mellitus | CPT/HCPCS: 80048; 80061; 83036 ==

== ENCOUNTER → 2024-11-25 13:57 | Outpatient (BNVA) | payer OTHER, SELFPAY | PROVIDERS: PCP Family Medicine; Visit Provider Family Medicine | DX: I10 Essential (primary) hypertension (principal); R73.03 Prediabetes | CPT/HCPCS: 80048; 83036; 83735 ==